=== PATIENT | male | born 1985 | race Two or more races ===

== ENCOUNTER 2018-06-16 15:05 | Emergency (ER) | payer SELFPAY ==
[~2018-06-16] VITALS: Ht 167.6 cm; Wt 79.4 kg
[2018-06-16] MEDS ORDERED: SODIUM CHLORIDE 0.9% 500 ML IV ONE (15:29)
[2018-06-16] MEDS ORDERED: HYDROmorphone HCL 2 MG/ML VL IV ONE (15:30)
[2018-06-16] MEDS ORDERED: ONDANSETRON HCL 4 MG/2 ML VIAL IV ONE (15:30)
[2018-06-16] MEDS ORDERED: IOHEXOL 300 MG/ML 100ML BOTTLE IJ ONE (15:47)
[2018-06-16 15:55] LABS: Basophils # (auto) 0 uL; Basophils % (auto) 0.5 % (0.0-2.0); Eosinophils # (auto) 0.1 uL; Eosinophils % (auto) 1.3 % (0.0-7.0); Hematocrit 47.9 % (41.0-53.0); Hemoglobin 16.6 g/dL (13.5-17.5); Lymphocytes # (auto) 1.4 uL; Lymphocytes % (auto) 13.8 % (10.0-50.0); Mean Corpuscular Hemoglobin 31.3 pg (28.0-32.0); Mean Corpuscular Hgb Conc. 34.7 g/dL (32.0-36.0); Mean Corpuscular Volume 90.3 fL (80.0-100.0); Monocytes # (auto) 0.8 uL; Monocytes % (auto) 7.9 % (0.0-12.0); Neutrophils # (auto) 7.8 uL; Neutrophils % (auto) 76.5 % (37.0-80.0); Platelet Count (auto) 295 10^3/uL (140-450); Red Blood Cells 5.31 10^6/uL (4.5-5.90); Red Cell Distribution Width 12.4 % (11.8-14.3); White Blood Cell 10.3 10^3/uL (4.4-10.8)
[2018-06-16 16:00] LABS: Aspartate Aminotransferase 59 U/L (15-37); Blood Urea Nitrogen 15 mg/dL (7-18); Calcium 8.7 mg/dL (8.5-10.1); Carbon Dioxide 27 mmol/L (21-32); GFR African American 109 mL/min; GFR Non-African American 90 mL/min; Glucose 141 mg/dL (74-106); Magnesium 2.3 mg/dL (1.6-2.6)
[2018-06-16 16:03] LABS: Alanine Aminotransferase 117 U/L (16-61); Anion Gap 9 (5-15); Bilirubin, Total 1.6 mg/dL (0.2-1.0); Chloride 104 mmol/L (98-107); Potassium 3.3 mmol/L (3.5-5.1); Sodium 140 mmol/L (136-145); Total Protein 8.8 g/dL (6.4-8.2)
[2018-06-16 16:06] LABS: Alkaline Phosphatase 114 U/L (45-117)
[2018-06-16 16:28] LABS: INR 0.93 (0.9-1.15); Partial Thromboplastin Time 28.7 sec (23.78-33.04)
[2018-06-16 18:16] VITALS: BP 144/94
== END 2018-06-16 18:17 | disposition home or self-care (01) ==
LOC: ER 15:05
DX: S22.42XA Multiple fractures of ribs, left side, initial encounter for closed fracture (principal); V86.55XA Driver of 3- or 4- wheeled all-terrain vehicle (ATV) injured in nontraffic accident, initial encounter; Y93.89 Activity, other specified; Y99.8 Other external cause status; Y92.89 Other specified places as the place of occurrence of the external cause
CPT/HCPCS: 36415; 70450; 71045; 71260; 74177; 80053; 83735; 84484; 85025; 85610; 85730; 93005; 94761; 96374; 96375; 99284; J1170; J2405; J7030; Q9967